=== PATIENT | male | born 1975 | race Two or more races ===

== ENCOUNTER 2022-09-21 00:39 | Emergency (ER) | payer SELFPAY ==
[~2022-09-21] VITALS: Ht 170.2 cm; Wt 70.0 kg
[2022-09-21] MEDS ORDERED: EPINEPHrine HCL 1 MG/10 ML SYRG IV ONE (00:40)
[2022-09-21 01:05] LABS: White Blood Cell 6.4 10^3/uL (4.4-10.8)
[2022-09-21 01:10] LABS: Hematocrit 48.8 % (41.0-53.0); Hemoglobin 15.7 g/dL (13.5-17.5); Mean Corpuscular Hemoglobin 30.2 pg (28.0-32.0); Mean Corpuscular Hgb Conc. 32.2 g/dL (32.0-36.0); Mean Corpuscular Volume 93.8 fL (80.0-100.0); Red Cell Distribution Width 13.1 % (11.8-14.3)
[2022-09-21 01:12] LABS: Band Neutrophils % (manual) 0; Basophils % (manual) 0 (0.0-2.0); Blast Cells 0; Eosinophils % (manual) 0 (0-7); Metamyelocytes % 0; Myelocytes % 0; Promyelocytes % 0
[2022-09-21 01:14] LABS: INR 0.96 (0.9-1.15); Partial Thromboplastin Time 27.4 sec (24.6-33.4)
[2022-09-21 01:16] LABS: Albumin 3.3 g/dL (3.4-5.0); BUN/Creatinine Ratio 9.7 (10.0-20.0); Calcium 9.3 mg/dL (8.5-10.1)
[2022-09-21 01:24] LABS: Bilirubin, Total 0.4 mg/dL (0.2-1.0); Total Protein 6.8 g/dL (6.4-8.2)
[2022-09-21 01:31] LABS: Lactic Acid w/Reflex 16.6 mmol/L (0.4-2.0)
[2022-09-21 01:52] LABS: Lymphocytes % (manual) 75 (10.0-50.0); Monocytes % (manual) 3 (0-12); Reactive Lymphocytes 8
== END 2022-09-21 04:29 ==
LOC: ER 00:39 → EDBD 00:39 → ER 04:29
DX: I46.9 Cardiac arrest, cause unspecified (principal); H57.04 Mydriasis
CPT/HCPCS: 36415; 80053; 83605; 84484; 85007; 85027; 85610; 85730; 86850; 86900; 86901; 92950; 99291; J0171